=== PATIENT | female | born 1995 | race Caucasian/White ===

== ENCOUNTER 2021-04-08 19:28 | Inpatient (IN) | payer OTHER ==
[2021-04-08] MEDS: TERBUTALINE SULF 1 MG/1ML SQ ONE ×2 (19:49→20:19)
[2021-04-08] MEDS ORDERED: Ringers Lactate 1,000 ML IV SCH (20:40)
[2021-04-08] MEDS ORDERED: BETAMET ACET/BETAMET NA PH 6 MG/ML VIAL IM ONE (20:46)
[2021-04-08] MEDS ORDERED: MAGNESIUM SULF/STERILE WATER 1,000 ML IV SCH (21:00)
[2021-04-08] MEDS ORDERED: BUTORPHANOL 1 MG/ML INJ IV ONE (22:00)
[2021-04-08] MEDS ORDERED: PROMETHAZINE INJ 25 MG/ML AMP IM ONE (22:00)
[2021-04-08] MEDS ORDERED: BUTORPHANOL 1 MG/ML INJ ONE (22:26)
[2021-04-08] MEDS ORDERED: PROMETHAZINE INJ 25 MG/ML AMP ONE (22:26)
[2021-04-08 22:46] VITALS: BP 119/78; TEMP 97.5; BMI 21.6
[2021-04-09] MEDS ORDERED: ACETAMINOPHEN 500 MG TAB PO PRN (00:10)
[2021-04-09] MEDS ORDERED: Ringers Lactate 2,000 ML IV ONE (03:55)
[2021-04-09] MEDS ORDERED: CEFAZOLIN/NS 1gm 1 GM/50 ML BAG IVPB ONE (06:59)
--- NOTE | 2021-04-09 07:47 | PREOPHP ---
Date of Admission: 04/08/2021 History Of Present Illness: A 25-year-old, 3, para 2, 25 weeks 6 days, followed antepartum w ithout complications at this point. Noted to have oligohydramnios in previous pregnancies. She has been seen by Dr. Mckeon, High-Risk specialist in [place]. Fluid levels were normal, but he noted the cervix is slightly thinner than normal. The patient came in last night with contractions regularly. Bag of water is intact. No bleeding. Baby looked good. Cervix was closed. She was giv en 2 doses of terbutaline, which did not affect contractions, then started on magnesium sulfate 4 g l oading dose, 2 g an hour maintenance dose and contractions have ceased. Baby looks good. Vital sign s are all good. Blood pressures have been low, but the patient runs low blood pressure as she has a small and thin woman. At this point, we will give her 1 g of Ancef, discontinue Luna and IV, and le t her go home. She is to reduce activity. No intercourse. No fatigue. She has appointment to see Dr. Mckeon a week from Wednesday. She will keep that appointment. He will continue to monitor her flui d levels. The fact that she has not had premature deliveries before, it does not mean that she can h ave her premature labor. The patient understands this, but it decreases the possibility and she show ed no cervical change whatsoever. She did get 1 dose of Celestone. We will get another dose this af ternoon. Family History: Noncontributory. Past Medical History: Other than the oligohydramnios is not relevant. Allergies: SHE HAS NO ALLERGIES. Medications: No medications prior to admission other than vitamins and iron. Physical Examination: HEENT: Clear. Pupils equal, round, reactive to light and accommodation. Conjunctivae well perfused . No oral, lingual, buccal lesions. Chest and Lungs: Clear. Heart: Without murmurs, thrills, heaves, or rubs. Breasts: Without masses on previous visits. Abdomen: Appropriate for gestational stage. Extremities: Clear. Pelvic: As stated above. Fingertip dilated with intact membranes. Diagnoses: Intrauterine gestation 25 weeks 6 days, possible premature labor now halted, Celestone ad ministration with second dose to follow this afternoon. NBC/MODL Voice ID: [id number]
[2021-04-09] MEDS ORDERED: INFLUENZA VACCINE (for 6+ mo) 0.5 ML DOSE IMVAC ONE (08:00)
--- NOTE | 2021-04-09 08:07 | DS ---
Hospital Course: A 25-year-old, 3, para 2, no history of premature labor, history of oligohy dramnios, has been seen by high-help desk specialist, Dr. Mckeon in [place] who said her fluid levels were normal. Dr. Mckeon noted, however, that her cervix was thinner than normal at this stage of pregnan cy. The patient came in with contractions. She has been given tocolytics including magnesium sulfat e. Contractions have stopped. She will continue to observe for decreased activity. No intercourse. She will get her second dose of Celestone this afternoon. She will see Dr. Mckeon a week from [facility] for her followup visit there. She knows if she goes into labor that it cannot be stopped or has a ny problems before 34 weeks, she will be delivered in [place] if at all possible. This has been disc ussed in the office and again today. VENECIA/BRADLEY Voice ID: [id number] Report ID: [id number]
[2021-04-09] MEDS ORDERED: BUTORPHANOL 1 MG/ML INJ IV ONE (08:45)
[2021-04-09] MEDS ORDERED: PROMETHAZINE INJ 25 MG/ML AMP IM ONE (08:45)
[2021-04-09] MEDS ORDERED: BETAMET ACET/BETAMET NA PH 6 MG/ML VIAL IM ONE (11:55)
== END 2021-04-09 13:00 | disposition home or self-care (01) | DRG 833 ==
LOC: L&D 19:28 → 2ND-WC 20:53
PROVIDERS: ADMIT Specialist; ATTEND Specialist
DX: O60.02 Preterm labor without delivery, second trimester (principal); Z3A.25 25 weeks gestation of pregnancy
CPT/HCPCS: 36415; 83735; 96372; 99218; J0595; J0690; J0702; J2550; J3105; J3475; J7120